=== PATIENT | male | born 1975 | race Caucasian/White ===

== ENCOUNTER 2024-10-20 11:35 | Emergency (ER) | payer SELFPAY ==
[2024-10-20] MEDS ORDERED: Ibuprofen 200 MG TAB ONE (12:08)
== END 2024-10-20 12:15 | disposition home or self-care (01) ==
LOC: NAV ERS 11:35
DX: S10.93XA Contusion of unspecified part of neck, initial encounter (principal); Y93.89 Activity, other specified; F17.210 Nicotine dependence, cigarettes, uncomplicated; V84.0XXA Driver of special agricultural vehicle injured in traffic accident, initial encounter
CPT/HCPCS: 99283